=== PATIENT | female | born 1990 | race Caucasian/White ===

== ENCOUNTER 2020-09-26 18:58 | Emergency (ER) | payer SELFPAY ==
[2020-09-26 19:07] VITALS: BP 132/76; PULSE 80; RESP 18; TEMP 37.2; O2SAT 100
--- NOTE | 2020-09-26 21:06 | ED_ITS ---
HPI - Wound/Laceration General Chief Complaint: Wound/Laceration Stated Complaint: cut rt leg Time Seen by Provider: 09/26/20 21:03 Source: patient Mode of arrival: Ambulatory History of Present Illness HPI narrative: Patient is a 30-year-old female here for evaluation of a cut on her right leg. She states she was with her they were evaluating a old travel trailer that they were potentially going to by. She was walking inside o f it and the sub floor was bad and so she stepped through this low before and cut her leg. She covered with bandage. No other injuries from the event. Related Data Allergies Allergy/AdvReac Type Severity Reaction Status Date / Time No Known Drug Allergies Allergy Verified 09/26/20 21:17 Review of Systems Constitutional Constitutional: Reports system reviewed and no additional complaints, except as documented Musculoskeletal Musculoskeletal: Reports system reviewed and no additional complaints, except as documented Integumentary/Breasts Skin/Breast: Reports as per HPI Hematologic/Lymphatic On Anticoagulants: No Patient History Medical History Healthy adult Social History Smoking Status: Never smoker Smoking Status: Never smoker Exam Initial Vital Signs Initial Vital Signs: Vital Signs Temperature 98.9 F 09/26/20 19:07 Pulse Rate 80 09/26/20 19:07 Respiratory Rate 18 09/26/20 19:07 Blood Pressure 132/76 09/26/20 19:07 Pulse Oximetry 100 09/26/20 19:07 Const General: cooperative and comfortable HENMT Head: normal to inspection and normocephalic Resp Effort & Inspection: normal respiratory effort Skin Other: Patient with a 5 cm laceration on the medial portion of her left upper leg. No active bleeding. Neuro General: patient alert, patient awake and moves all extremities Extrem General: normal to inspection Psych Appearance: grossly normal and well kempt Procedures Laceration Repair Laceration 1: Site: lower extremity Side (If applicable): right Size (cm): 5 Description: linear Depth: simple, single layer Local Anesthetic: lidocaine 1% and with bicarb Amount of anesthesia used (mL): 5 Pre-repair: wound explored, irrigated extensively and deep structures intact Skin layer closed with: nylon Size (cm): 4-0 Technique: simple, interrupted Course Orders Ordered: Discontinued Medications Bacitracin (Bacitracin Oint 0.9 Gm Pckt) 1 applic TOP NOW ONE Stop: 09/26/20 21:44 Diphtheria/Tetanus/Acell Pertussis (Tet,Diph,Pertuss(Acell),Vac/Pf 0.5 Ml Syringe) 0.5 ml IM .ONCE ONE Stop: 09/26/20 21:07 Last Admin: 09/26/20 21:18 Dose: 0.5 ml Documented by: GRUPO Lidocaine/Sodium Bicarbonate (Lido 1%/Sod Bicarb 8.4% (10ml) 10 Ml Syringe) 10 ml INJ NOW ONE Stop: 09/26/20 21:07 Last Admin: 09/26/20 21:18 Dose: 10 ml Documented by: GRUPO Vital Signs Vital signs: Vital Signs - 8 hr 09/26/20 19:07 Temperature 98.9 F Pulse Rate 80 Respiratory Rate 18 Blood Pressure 132/76 Pulse Oximetry 100 MDM - Wound/Laceration MDM Narrative Medical decision making narrative: Patient's wound was cleaned and closed as described above. Her tetanus was updated. No other injuries found to the exam nor reported from the event. She was given care instructions and return precautions. She expressed understanding and agreement. Discharge Plan Departure Patient Disposition: Home Clinical Impression: Laceration Instructions: DI for Laceration Repair Activity Restrictions/Additional Instructions: I do recommend that you keep and antibiotic ointment over the area. The stitches do need to be removed in approximately 10 days. You can shower like normal in use soap and water like normal. Return to the emergency department for any new or worsening symptoms
[2020-09-26] MEDS: LIDO 1%/SOD BICARB 8.4% (10ML) 10 ML SYRINGE INJ (21:18)
[2020-09-26] MEDS: TET,DIPH,PERTUSS(ACELL),VAC/PF 0.5 ML SYRINGE IM (21:18)
== END 2020-09-26 22:19 | disposition home or self-care (01) ==
PROVIDERS: Emergency Provider Emergency Medicine
DX: S81.811A Laceration without foreign body, right lower leg, initial encounter (principal); W19.XXXA Unspecified fall, initial encounter; Z23 Encounter for immunization
CPT/HCPCS: 12002; 90471; 99283; 90715